=== PATIENT | female | born 1950 | race American Indian/Alaskan Native ===

== ENCOUNTER 2017-06-23 04:49 | Outpatient (CLI) | payer MEDICARE, BC ==
[~2017-06-23 04:49] MED LIST: AMOX-580 PO; ASPI81TA52 PO; ATOR20TA PO; BENA20TA2 PO; CALC-627 PO; INSU300I SQ; LEVO25TA50 PO; LINA5TAB4 PO; METF500T7 PO
== END 2017-06-23 23:59 | disposition home or self-care (01) ==
LOC: DIABETIC 04:49
PROVIDERS: ATTEND Family Medicine
DX: E11.65 Type 2 diabetes mellitus with hyperglycemia (principal); I10 Essential (primary) hypertension; Z90.710 Acquired absence of both cervix and uterus; Z98.890 Other specified postprocedural states
CPT/HCPCS: G0108

== ENCOUNTER 2017-12-20 05:12 | Day surgery (SDC) | payer MEDICARE, BC ==
[2017-12-14 16:38] LABS: BASOPHILS % (AUTO) 0.4 % (0-1); EOSINOPHILS # (AUTO) 0.2 X10'3 (0-0.9); LYMPHOCYTES # (AUTO) 2.5 X10'3 (1.1-4.8); LYMPHOCYTES % (AUTO) 29.8 % (21-51); MEAN CORPUSCULAR HGB CONC 34.2 % (33.0-36.5); MEAN CORPUSCULAR VOLUME 87.7 FL (78-98); MONOCYTES # (AUTO) 0.7 X10'3 (0-0.9); NEUTROPHILS % (AUTO) 59.8 % (42-75); PRE OP HEMATOCRIT 35.8 % (35.0-45.0); PRE OP HEMOGLOBIN 12.2 g/dL (12.0-16.0); PRE OP PLATELET COUNT 228 X10'3 (140-440); RED BLOOD COUNT 4.08 X10'6 (4.20-5.60); RED CELL DISTRIBUTION WIDTH 13.7 % (11.5-14.5)
[2017-12-14 16:45] LABS: HEMOGLOBIN A1C 6.1 % (4.5-6.2)
[2017-12-14 16:47] LABS: ALBUMIN 3.5 G/DL (3.4-5.0); ALKALINE PHOSPHATASE 67 IU/L (46-116); BLOOD UREA NITROGEN 20 MG/DL (7-18); BUN/CREATININE RATIO 18.7 (6.6-38.0); CALCIUM 8.8 MG/DL (8.5-10.1); CHLORIDE 105 MMOL/L (99-107); CREATININE 1.07 MG/DL (0.40-0.90); PRE OP ALT 26 U/L (30-65); PRE OP ANION GAP 6 (8-16); PRE OP AST 21 U/L (10-37); PRE OP BILIRUB, TOTAL 0.7 MG/DL (0.0-1.0); PRE OP GLUCOSE 115 MG/DL (70-104); PRE OP POTASSIUM 3.9 MMOL/L (3.4-5.1); PRE OP SODIUM 142 MMOL/L (135-145); TOTAL CARBON DIOXIDE 31.2 MMOL/L (24-32); eGFR 51 ML/MIN
[~2017-12-20] VITALS: Ht 157.5 cm; Wt 86.2 kg
[2017-12-20] VITALS (18 sets, daily range): BP systolic 120–142; BP diastolic 59–78
[~2017-12-20 05:12] MED LIST changes: -CALC-627 PO; +ringers solution, lacted 1,000 ML IV SCH
[2017-12-20] MEDS ORDERED: LIDOcaine 1% (10mg/ml) 2ml vial ONE (05:24)
[2017-12-20] MEDS ORDERED: Cefazolin 2GM/50ML dext iso,osmotic IVPB IV ONE (05:30)
[2017-12-20] MEDS ORDERED: vancomycin inj 1,500 MG in normal saline 300ml IV soln IV ONE (05:30)
[2017-12-20] MEDS ORDERED: famotidine 20mg tablet PO ONE (05:30)
[2017-12-20] MEDS ORDERED: PREG50CA PO (05:50)
[2017-12-20] MEDS ORDERED: BENA1TAB14 PO (05:50)
[2017-12-20] MEDS ORDERED: DOXY100C2 PO (05:52)
[2017-12-20] MEDS ORDERED: ASPI-1264 PO (05:52)
[2017-12-20] MEDS ORDERED: LIDOCAINE PATCH (05:55)
[2017-12-20] MEDS ORDERED: TOBR5DRO47 RIGHTEYE (05:55)
[2017-12-20] MEDS ORDERED: scopolamine 1.5mg patch.TD72 TD ONE (06:05)
[2017-12-20] MEDS ORDERED: cloNIDine hcl/PF 100mcg/ml inj ONE (06:12)
[2017-12-20] MEDS ORDERED: ROPIVAcaine 0.5% (5mg/ml) 30ml vial ONE ×2 (06:12→06:46)
[2017-12-20] MEDS ORDERED: acetaminophen 1,000mg/100ml IV 100 ML IV ONE (06:13)
[2017-12-20] MEDS ORDERED: fentaNYL/PF 50MCG/1 ML 2ML syringe ONE (06:16)
[2017-12-20] MEDS ORDERED: midazolam 2 mg/2 ml injection ONE (06:16)
[2017-12-20] MEDS ORDERED: ondansetron/PF 4mg/2ml inj ONE (06:20)
[2017-12-20] MEDS ORDERED: dexamethasone sod phosphate 4mg/ml inj. ONE (06:20)
[2017-12-20] MEDS ORDERED: ringers solution, lacted 1,000 ML IV SCH (06:21)
[2017-12-20] MEDS ORDERED: morphine 4 MG/ML inj SYRINge IV PRN ×2 (06:25)
[2017-12-20] MEDS ORDERED: proMETHazine 25mg rectal suppository RC PRN (06:25)
[2017-12-20] MEDS ORDERED: enalaprilat dihydrate 2.5mg/2ml vial IV PRN (06:25)
[2017-12-20] MEDS ORDERED: fentaNYL/PF 50MCG/1 ML 2ML syringe IV PRN ×2 (06:25)
[2017-12-20] MEDS ORDERED: hydrALAZINE 20mg/ml inj. IV PRN (06:25)
[2017-12-20] MEDS ORDERED: sevoflurane 250ml liquid IH ONE (06:44)
[2017-12-20] MEDS ORDERED: epiNEPHrine 1 mg/ml inj ONE (06:46)
== END 2017-12-20 11:11 | disposition home or self-care (01) ==
LOC: PAS 05:12
PROVIDERS: ATTEND Orthopaedic Surgery
DX: M75.102 Unspecified rotator cuff tear or rupture of left shoulder, not specified as traumatic (principal); G47.33 Obstructive sleep apnea (adult) (pediatric); E11.22 Type 2 diabetes mellitus with diabetic chronic kidney disease; I12.9 Hypertensive chronic kidney disease with stage 1 through stage 4 chronic kidney disease, or unspecified chronic kidney disease; N18.3 Chronic kidney disease, stage 3 (moderate); E78.5 Hyperlipidemia, unspecified; E89.0 Postprocedural hypothyroidism; G89.18 Other acute postprocedural pain; Z90.89 Acquired absence of other organs; Z86.73 Personal history of transient ischemic attack (TIA), and cerebral infarction without residual deficits; Z98.51 Tubal ligation status; Z90.710 Acquired absence of both cervix and uterus; Z72.89 Other problems related to lifestyle; Z85.53 Personal history of malignant neoplasm of renal pelvis; Z79.2 Long term (current) use of antibiotics; Z88.5 Allergy status to narcotic agent; Z88.2 Allergy status to sulfonamides; Z91.011 Allergy to milk products; Z79.82 Long term (current) use of aspirin; Z79.4 Long term (current) use of insulin; Z79.84 Long term (current) use of oral hypoglycemic drugs; Z98.890 Other specified postprocedural states; Z79.899 Other long term (current) drug therapy
CPT/HCPCS: 29822; 36415; 64450; 80053; 82948; 83036; 85025; 93005; A4565; A6257; J0131; J0171; J0690; J0735; J1100; J2250; J2405; J2795; J3010; J3370; J3490; J7030; J7120; A7000

== ENCOUNTER 2018-03-14 05:42 | Inpatient (IN) | payer BC, MEDICARE ==
[2018-03-08 16:21] LABS: BASOPHILS % (AUTO) 0.6 % (0-1); EOSINOPHILS # (AUTO) 0.1 X10'3 (0-0.9); EOSINOPHILS % (AUTO) 1.9 % (0-6); LYMPHOCYTES # (AUTO) 2.1 X10'3 (1.1-4.8); LYMPHOCYTES % (AUTO) 28.8 % (21-51); MEAN CORPUSCULAR HEMOGLOBIN 29.9 PG (27.0-31.0); MEAN CORPUSCULAR HGB CONC 33.5 % (33.0-36.5); MEAN CORPUSCULAR VOLUME 89.4 FL (78-98); MONOCYTES # (AUTO) 0.7 X10'3 (0-0.9); MONOCYTES % (AUTO) 9.3 % (2-12); NEUTROPHILS # (AUTO) 4.5 X10'3 (1.8-7.7); NEUTROPHILS % (AUTO) 59.4 % (42-75); PRE OP HEMATOCRIT 37.3 % (35.0-45.0); PRE OP HEMOGLOBIN 12.5 g/dL (12.0-16.0); PRE OP PLATELET COUNT 236 X10'3 (140-440); RED BLOOD COUNT 4.17 X10'6 (4.20-5.60); RED CELL DISTRIBUTION WIDTH 12.8 % (11.5-14.5)
[2018-03-08 16:41] LABS: ALBUMIN 3.5 G/DL (3.4-5.0); ALKALINE PHOSPHATASE 75 IU/L (46-116); BLOOD UREA NITROGEN 19 MG/DL (7-18); BUN/CREATININE RATIO 18.4 (6.6-38.0); CHLORIDE 104 MMOL/L (99-107); CREATININE 1.03 MG/DL (0.40-0.90); PRE OP ALT 29 U/L (30-65); PRE OP ANION GAP 9 (8-16); PRE OP AST 23 U/L (10-37); PRE OP BILIRUB, TOTAL 0.6 MG/DL (0.0-1.0); PRE OP GLUCOSE 129 MG/DL (70-104); PRE OP SODIUM 142 MMOL/L (135-145); TOTAL CARBON DIOXIDE 28.6 MMOL/L (24-32); TOTAL PROTEIN 6.9 G/DL (6.4-8.2); eGFR 53 ML/MIN
[~2018-03-14] VITALS: Ht 156.2 cm; Wt 88.5 kg
[2018-03-14] VITALS (30 sets, daily range): BP systolic 88–119; BP diastolic 36–67
[~2018-03-14 05:42] MED LIST changes: -AMOX-580 PO; +ASPI-1264 PO; -ASPI81TA52 PO; +BENA1TAB14 PO; -BENA20TA2 PO; +DOXY100C2 PO; +LIDO700A32 TP; +PREG50CA PO; +TOBR5DRO47 RIGHTEYE; +acetaminophen 325mg tablet PO ONE; +cefazolin/dext.iso 2gm/100 ML IV ONE; +famotidine 20mg tablet PO ONE; +gabapentin 300mg capsule PO ONE; +metoclopramide 5 mg/ml inj IV ONE; +oxyCODONE SR 10mg (sust. release) tab PO ONE; +scopolamine 1.5mg patch.TD72 TD ONE; +tranexamic acid inj. 1,000 MG in normal saline 100ml IV soln 90 ML IV ONE; +vancomycin inj 1,500 MG in normal saline 300ml IV soln IV ONE
[2018-03-14] MEDS ORDERED: LIDOcaine 1% (10mg/ml) 2ml vial ONE ×2 (06:07→06:15)
[2018-03-14] MEDS ORDERED: acetaminophen 1,000mg/100ml IV 100 ML IV ONE (06:49)
[2018-03-14] MEDS ORDERED: ROPIVAcaine 0.5% (5mg/ml) 30ml vial ONE (06:49)
[2018-03-14] MEDS ORDERED: cloNIDine hcl/PF 100mcg/ml inj ONE (06:49)
[2018-03-14] MEDS ORDERED: fentaNYL/PF 50MCG/1 ML 2ML syringe ONE (06:51)
[2018-03-14] MEDS ORDERED: midazolam 2 mg/2 ml injection ONE (06:51)
[2018-03-14] MEDS ORDERED: dexamethasone sod phosphate 4mg/ml inj. ONE (06:52)
[2018-03-14] MEDS ORDERED: LIDOcaine 2% (20mg/ml) 5ml vial ONE (06:53)
[2018-03-14] MEDS ORDERED: propofol inj 20 ML IV ONE (06:53)
[2018-03-14] MEDS ORDERED: vancomycin 1,000mg inj ONE (06:55)
[2018-03-14] MEDS ORDERED: ceFAZolin 1000mg inj ONE ×2 (06:55→09:25)
[2018-03-14] MEDS ORDERED: sevoflurane 250ml liquid IH ONE (07:10)
[2018-03-14] MEDS ORDERED: ePHEDrine 50MG/ML INJ. ONE (07:10)
[2018-03-14] MEDS ORDERED: Thrombin (Bovine) 5,000 unit vial TP ONE (07:42)
[2018-03-14] MEDS ORDERED: calcium chloride 100 MG/1 ML inj IV ONE (07:55)
[2018-03-14] MEDS ORDERED: ondansetron/PF 4mg/2ml inj ONE ×2 (08:20→09:11)
[2018-03-14] MEDS ORDERED: ringers solution, lacted 1,000 ML IV SCH (08:33)
[2018-03-14] MEDS ORDERED: fentaNYL/PF 50MCG/1 ML 2ML syringe IV PRN ×2 (08:35)
[2018-03-14] MEDS ORDERED: proMETHazine 25mg rectal suppository RC PRN (08:35)
[2018-03-14] MEDS ORDERED: morphine 4 MG/ML inj SYRINge IV PRN ×2 (08:35)
[2018-03-14] MEDS ORDERED: hydrALAZINE 20mg/ml inj. IV PRN (08:35)
[2018-03-14] MEDS ORDERED: ondansetron/PF 4mg/2ml inj IV PRN (08:35)
[2018-03-14] MEDS ORDERED: proCHLORperazine 10 MG/2 ml inj IV PRN (08:35)
[2018-03-14] MEDS ORDERED: labetalol 20mg/4ml (5mg/ml) syringe IV PRN (08:35)
[2018-03-14] MEDS ORDERED: LIDOcaine 5% patch TP PRN (11:50)
[2018-03-14] MEDS ORDERED: oxyCODONE IR 5mg (immed. release) tablet PO PRN (13:15)
[2018-03-14] MEDS ORDERED: diphenhydrAMINE 25mg capsule PO PRN ×2 (13:15)
[2018-03-14] MEDS ORDERED: acetaminophen 325mg tablet PO PRN (13:15)
[2018-03-14] MEDS ORDERED: bisacodyl 10mg suppository rectal RC PRN (13:15)
[2018-03-14] MEDS ORDERED: magnesium hydroxide 30ml (MOM) UD suspension PO PRN (13:15)
[2018-03-14] MEDS: acetaminophen 325mg tablet PO SCH ×3 (14:00→20:24)
[2018-03-14] MEDS: clindamycin 600mg/D5W 50ml 50 ML IV SCH ×2 (14:57→22:25)
[2018-03-14] MEDS ORDERED: tranexamic acid inj. 900 MG in normal saline 100ml IV soln 100 ML IV ONE (16:15)
[2018-03-14] MEDS: potassium cl 20mEq in 1/2 NS 1,000 ML IV SCH (17:57)
[2018-03-14] MEDS ORDERED: vancomycin/NS 1 GM ADD-VANTAGE 250 ML IV SCH (20:00)
[2018-03-14] MEDS: sennosides 8.6mg tablet PO SCH (20:24)
[2018-03-14] MEDS: gabapentin 300mg capsule PO SCH (20:24)
[2018-03-14] MEDS: pregabalin 25mg capsule PO SCH (20:24)
[2018-03-14] MEDS: metFORMIN 500mg tablet PO SCH (20:24)
[2018-03-14] MEDS ORDERED: clindamycin 600mg/D5W 50ml 50 ML IV SCH (22:30)
[2018-03-15 02:00] VITALS: BP 90/46
[2018-03-15] MEDS: acetaminophen 325mg tablet PO SCH ×4 (02:00→19:22)
[2018-03-15] MEDS: ondansetron/PF 4mg/2ml inj IV PRN ×3 (05:28→19:22)
[2018-03-15 06:00] VITALS: BP 111/44
[2018-03-15 06:27] LABS: HEMOGLOBIN A1C 6.8 % (4.5-6.2)
[2018-03-15] MEDS: potassium cl 20mEq in 1/2 NS 1,000 ML IV SCH ×3 (06:35→21:14)
[2018-03-15 06:49] LABS: ANION GAP 9 (8-16); CHLORIDE 105 MMOL/L (99-107); POTASSIUM 4.1 MMOL/L (3.5-5.1); SODIUM 140 MMOL/L (135-145)
[2018-03-15 07:11] LABS: BASOPHILS % (AUTO) 0.4 % (0-1); EOSINOPHILS % (AUTO) 0.4 % (0-6); HEMATOCRIT 31.2 % (35.0-45.0); HEMOGLOBIN 10.6 g/dl (12.0-16.0); LYMPHOCYTES # (AUTO) 1.6 X10'3 (1.1-4.8); LYMPHOCYTES % (AUTO) 20.4 % (21-51); MEAN CORPUSCULAR HEMOGLOBIN 30.2 PG (27.0-31.0); MEAN CORPUSCULAR HGB CONC 34.1 % (33.0-36.5); MEAN CORPUSCULAR VOLUME 88.6 FL (78-98); MEAN PLATELET VOLUME 9.1 FL (7.4-10.4); MONOCYTES # (AUTO) 0.7 X10'3 (0-0.9); MONOCYTES % (AUTO) 8.9 % (2-12); NEUTROPHILS # (AUTO) 5.6 X10'3 (1.8-7.7); NEUTROPHILS % (AUTO) 69.9 % (42-75); PLATELET COUNT 182 X10'3 (140-440); RED BLOOD COUNT 3.52 X10'6 (4.20-5.60); RED CELL DISTRIBUTION WIDTH 13.2 % (11.5-14.5); WHITE BLOOD COUNT 7.9 X10'3 (4.5-11.0)
[2018-03-15] MEDS: lisinopril 20mg tablet PO SCH (08:00)
[2018-03-15] MEDS: HYDROchlorothiazide 12.5mg capsule PO SCH (08:00)
[2018-03-15] MEDS: levoTHYROXINE 75mcg tablet PO SCH (08:33)
[2018-03-15] MEDS: atorvastatin 20mg tablet PO SCH (08:34)
[2018-03-15] MEDS: linagliptin 5mg tablet PO SCH (08:34)
[2018-03-15] MEDS: gabapentin 300mg capsule PO SCH ×3 (08:34→19:28)
[2018-03-15] MEDS: metFORMIN 500mg tablet PO SCH ×2 (08:34→19:21)
[2018-03-15] MEDS: pregabalin 25mg capsule PO SCH ×2 (08:34→19:22)
[2018-03-15] MEDS: DOXYCYCLINE 100MG CAPSULE PO SCH (08:35)
[2018-03-15] MEDS: enoxaparin 30mg/0.3ml syringe SQ SCH (08:35)
[2018-03-15] MEDS: HYDROmorphone 1 mg/ml syringe IV PRN ×4 (08:36→21:39)
[2018-03-15] MEDS: insulin glargine (Lantus) pen - multi-dose SQ SCH (08:54)
[2018-03-15 10:00] VITALS: BP 97/35
[2018-03-15 14:00] VITALS: BP 112/50
[2018-03-15 18:00] VITALS: BP 109/63
[2018-03-15] MEDS: sennosides 8.6mg tablet PO SCH (19:28)
[2018-03-15 22:00] VITALS: BP 116/49
[2018-03-16] MEDS: acetaminophen 325mg tablet PO SCH ×2 (02:00→08:14)
[2018-03-16] MEDS: ondansetron/PF 4mg/2ml inj IV PRN ×2 (03:08→10:46)
[2018-03-16] MEDS: HYDROmorphone 1 mg/ml syringe IV PRN ×3 (03:48→15:13)
[2018-03-16 05:00] VITALS: BP 117/45
[2018-03-16] MEDS: potassium cl 20mEq in 1/2 NS 1,000 ML IV SCH (05:14)
[2018-03-16 05:51] LABS: BASOPHILS % (AUTO) 0.4 % (0-1); EOSINOPHILS # (AUTO) 0.1 X10'3 (0-0.9); HEMATOCRIT 26.7 % (35.0-45.0); HEMOGLOBIN 9.5 g/dl (12.0-16.0); LYMPHOCYTES # (AUTO) 1.2 X10'3 (1.1-4.8); LYMPHOCYTES % (AUTO) 14.9 % (21-51); MEAN CORPUSCULAR HEMOGLOBIN 31.5 PG (27.0-31.0); MEAN CORPUSCULAR HGB CONC 35.5 % (33.0-36.5); MEAN CORPUSCULAR VOLUME 88.7 FL (78-98); MONOCYTES % (AUTO) 12.2 % (2-12); NEUTROPHILS # (AUTO) 5.9 X10'3 (1.8-7.7); NEUTROPHILS % (AUTO) 71.5 % (42-75); PLATELET COUNT 161 X10'3 (140-440); RED BLOOD COUNT 3.01 X10'6 (4.20-5.60); RED CELL DISTRIBUTION WIDTH 12.7 % (11.5-14.5); WHITE BLOOD COUNT 8.2 X10'3 (4.5-11.0)
[2018-03-16] MEDS: HYDROchlorothiazide 12.5mg capsule PO SCH (08:00)
[2018-03-16] MEDS: lisinopril 20mg tablet PO SCH (08:00)
[2018-03-16] MEDS: insulin glargine (Lantus) pen - multi-dose SQ SCH (08:10)
[2018-03-16] MEDS: atorvastatin 20mg tablet PO SCH (08:12)
[2018-03-16] MEDS: gabapentin 300mg capsule PO SCH ×2 (08:12→13:50)
[2018-03-16] MEDS: DOXYCYCLINE 100MG CAPSULE PO SCH (08:12)
[2018-03-16] MEDS: linagliptin 5mg tablet PO SCH (08:13)
[2018-03-16] MEDS: pregabalin 25mg capsule PO SCH (08:14)
[2018-03-16] MEDS: metFORMIN 500mg tablet PO SCH (08:15)
[2018-03-16] MEDS: levoTHYROXINE 75mcg tablet PO SCH (08:15)
[2018-03-16] MEDS: enoxaparin 30mg/0.3ml syringe SQ SCH (08:17)
[2018-03-16] MEDS ORDERED: iohexol 300 MG/1 ML 50ml polymer ONE (08:50)
[2018-03-16 10:00] VITALS: BP 104/54
[2018-03-16] MEDS ORDERED: acetaminophen 325mg tablet PO PRN (13:15)
== END 2018-03-16 15:44 | disposition home or self-care (01) | DRG 483 ==
LOC: PAS IN 05:42 → EDSTATUS 08:30 → ORTHO 4S 13:55
PROVIDERS: ADMIT Orthopaedic Surgery; ATTEND Orthopaedic Surgery
PROC: 3E0T3BZ Introduction of Anesthetic Agent into Peripheral Nerves and Plexi, Percutaneous Approach (ICD-10-PCS; 2018-03-14)
PROC: 0RRK00Z Replacement of Left Shoulder Joint with Reverse Ball and Socket Synthetic Substitute, Open Approach (ICD-10-PCS; principal; 2018-03-14 07:15)
DX: M19.012 Primary osteoarthritis, left shoulder (principal); D62 Acute posthemorrhagic anemia; E11.9 Type 2 diabetes mellitus without complications; I25.10 Atherosclerotic heart disease of native coronary artery without angina pectoris; E78.5 Hyperlipidemia, unspecified; G47.30 Sleep apnea, unspecified; E66.9 Obesity, unspecified; E89.0 Postprocedural hypothyroidism; I10 Essential (primary) hypertension; M75.102 Unspecified rotator cuff tear or rupture of left shoulder, not specified as traumatic; Z85.528 Personal history of other malignant neoplasm of kidney; Z68.36 Body mass index [BMI] 36.0-36.9, adult; Z88.5 Allergy status to narcotic agent; Z88.2 Allergy status to sulfonamides; Z91.018 Allergy to other foods; Z79.899 Other long term (current) drug therapy; Z79.82 Long term (current) use of aspirin; Z79.4 Long term (current) use of insulin
CPT/HCPCS: 36415; 73020; 80051; 80053; 82948; 83036; 84443; 85025; 87070; 97110; 97116; 97161; 97530; A4565; A7000; C1713; J0131; J0690; J0735; J1100; J1170; J1650; J1815; J2001; J2250; J2405; J2704; J2765; J2795; J3010; J3370; J3490; J7030; J7120; Q9967

== ENCOUNTER 2019-06-15 12:10 | Inpatient (IN) | payer BC, MEDICARE ==
[~2019-06-15] VITALS: Ht 157.5 cm; Wt 80.2 kg
[~2019-06-15 12:10] MED LIST changes: +METF500T20 PO; -METF500T7 PO; -TOBR5DRO47 RIGHTEYE; -acetaminophen 325mg tablet PO ONE; -cefazolin/dext.iso 2gm/100 ML IV ONE; -famotidine 20mg tablet PO ONE; -gabapentin 300mg capsule PO ONE; -metoclopramide 5 mg/ml inj IV ONE; -oxyCODONE SR 10mg (sust. release) tab PO ONE; -ringers solution, lacted 1,000 ML IV SCH; -scopolamine 1.5mg patch.TD72 TD ONE; -tranexamic acid inj. 1,000 MG in normal saline 100ml IV soln 90 ML IV ONE; -vancomycin inj 1,500 MG in normal saline 300ml IV soln IV ONE
[2019-06-15] MEDS ORDERED: LIPA1CAP8 (12:41)
[2019-06-15 13:12] LABS: BASOPHILS % (AUTO) 0.6 % (0-1); EOSINOPHILS # (AUTO) 0.2 X10'3 (0-0.9); EOSINOPHILS % (AUTO) 2.2 % (0-6); HEMATOCRIT 29.2 % (35.0-45.0); HEMOGLOBIN 9.6 g/dl (12.0-16.0); LYMPHOCYTES # (AUTO) 1.4 X10'3 (1.1-4.8); LYMPHOCYTES % (AUTO) 18.3 % (21-51); MEAN CORPUSCULAR HEMOGLOBIN 28.6 PG (27.0-31.0); MEAN CORPUSCULAR VOLUME 86.5 FL (78-98); MEAN PLATELET VOLUME 7.9 FL (7.4-10.4); MONOCYTES # (AUTO) 0.7 X10'3 (0-0.9); MONOCYTES % (AUTO) 9.5 % (2-12); NEUTROPHILS # (AUTO) 5.4 X10'3 (1.8-7.7); NEUTROPHILS % (AUTO) 69.4 % (42-75); PLATELET COUNT 299 X10'3 (140-440); RED BLOOD COUNT 3.37 X10'6 (4.20-5.60); RED CELL DISTRIBUTION WIDTH 17.3 % (11.5-14.5); WHITE BLOOD COUNT 7.8 X10'3 (4.5-11.0)
[2019-06-15 13:43] LABS: ALANINE AMINOTRANSFERASE 21 U/L (12-78); ALBUMIN 3.5 G/DL (3.4-5.0); ALBUMIN/GLOBULIN RATIO 0.8 (1.1-1.5); ALKALINE PHOSPHATASE 62 IU/L (46-116); ANION GAP 10 (8-16); ASPARTATE AMINO TRANSFERASE 16 U/L (10-37); BILIRUBIN,TOTAL 0.4 MG/DL (0.1-1.0); BLOOD UREA NITROGEN 65 MG/DL (7-18); BUN/CREATININE RATIO 27.3 (6.6-38.0); CALCIUM 8.7 MG/DL (8.5-10.1); CHLORIDE 107 MMOL/L (99-107); CREATININE 2.38 MG/DL (0.40-0.90); GLUCOSE 116 MG/DL (70-104); LIPASE 2060 U/L (73-393); SODIUM 136 MMOL/L (135-145); TOTAL PROTEIN 7.7 G/DL (6.4-8.2); eGFR 20 ML/MIN
[2019-06-15 13:45] LABS: POTASSIUM 6.4 MMOL/L (3.5-5.1)
--- NOTE | 2019-06-15 13:49 | NUR ---
Patient's potassium 6.4. Dr Desai aware.
[2019-06-15] MEDS ORDERED: furosemide 40mg/4ml inj IV ONE (14:05)
[2019-06-15] MEDS ORDERED: sodium bicarbonate (8.4%) 1 mEq/ml syringe IV ONE (14:05)
[2019-06-15] MEDS ORDERED: dextrose 50%-water 50ml dispensing syringe IV ONE (14:05)
[2019-06-15] MEDS ORDERED: insulin regular, human 10 units/0.1 ml syringe IV ONE (14:05)
[2019-06-15] MEDS ORDERED: calcium chloride 100 MG/1 ML inj IV ONE (14:05)
[2019-06-15] MEDS: diatr meglu/diatrizoate 30ml oral sol.-(3 dose) bottle PO SCH ×7 (14:06→21:06)
[2019-06-15 14:17] LABS: CLARITY,URINE CLEAR (Clear); COLOR,URINE YELLOW (Yellow); GLUCOSE, URINE NEGATIVE (Neg); KETONES,URINE NEGATIVE (Neg); LEUKOCYTE ESTERASE ,URINE TRACE (Neg); NITRITES, URINE NEGATIVE (Neg); OCCULT BLOOD,URINE NEGATIVE (Neg); PH,URINE 5.5 (4.8-8.0); PROTEIN,URINE NEGATIVE (Neg); UROBILINOGEN,URINE 0.2 E.U/dL (0.2-1.0)
[2019-06-15] MEDS ORDERED: sodium bicarbonate (8.4%) inj. 1 MEQ/ML ML IV ONE (14:20)
[2019-06-15 14:23] LABS: UA COLLECTION TYPE CLN CATCH MIDSTREAM
[2019-06-15 14:24] LABS: BACTERIA,URINE FEW /HPF (Neg); MUCUS STRANDS FEW /LPF (Neg); RBC,URINE 0-2 /HPF (0-2); SQUAMOUS EPITHELIAL CELL,UR MANY /LPF (FEW); WBC,URINE 0-4 /HPF (0-4)
[2019-06-15] MEDS: sodium bicarbonate (8.4%) inj. 75 MEQ in dextrose 5% water 500ml 500 ML IV SCH ×2 (15:46→20:50)
--- NOTE | 2019-06-15 16:51 | NUR ---
Pt's IV saline locked for CT scan. Pt transported to CT scan via w/c.
[2019-06-15 16:56] LABS: HEMOGLOBIN A1C 6.2 % (4.5-6.2)
[2019-06-15] MEDS ORDERED: dextrose ORAL solution 15 GM/59 ML bottle PO PRN ×2 (17:50)
[2019-06-15] MEDS ORDERED: insulin Lispro (HumaLOG) vial - multi-dose SQ SCH (17:50)
[2019-06-15] MEDS ORDERED: glucagon, human recombinant 1mg kit SUBCUT PRN (17:50)
[2019-06-15] MEDS ORDERED: dextrose 50%-water 50ml dispensing syringe IV PRN ×2 (17:50)
[2019-06-15] MEDS ORDERED: MESSAGE TO PHARMACY PO ONE (17:50)
--- NOTE | 2019-06-15 19:00 | NUR ---
Patient arrived to floor via gurney, transferred to hospital bed with minimum assistance. Patient alert/oriented x4, in no apparent distress. Vitals WNL, denies pain and nausea at this time, complains of constant need to "belch", but otherwise has no complaints. Abdominal incision present from prior surgery in may of 2019 with KALEN drain present, currently draining white drainage with mild odor. Incision CDI at this time, no other signs of infection noted to incision. Oriented patient to room and call light. Will continue to monitor patient closely.
[2019-06-15 20:00] VITALS: BP 128/41
[2019-06-15] MEDS ORDERED: LIPA1CAP8 PO (20:21)
--- NOTE | 2019-06-15 20:39 | NUR ---
Dr. Mulligan at bedside to assess patient. Son and daughter at bedside as well. All questions/concerns answered by . Addendum: 06/15/19 at 2051 by Lukas Wheatley RN Per Dr. Mulligan, patient to have regular diet instead of clear liquids. states to continue patient's lipase/amylase capsules if patient is eating without complications.
[2019-06-15 21:00] VITALS: BP 125/61
[2019-06-15] MEDS: insulin glargine (Lantus) pen - multi-dose SQ SCH (21:00)
[2019-06-15 22:00] VITALS: BP 124/53
[2019-06-16] VITALS (23 sets, daily range): BP systolic 88–129; BP diastolic 38–56
[2019-06-16] MEDS: sodium bicarbonate (8.4%) inj. 75 MEQ in dextrose 5% water 500ml 500 ML IV SCH ×3 (00:30→08:24)
[2019-06-16 05:26] LABS: BASOPHILS % (AUTO) 0.6 % (0-1); EOSINOPHILS # (AUTO) 0.2 X10'3 (0-0.9); EOSINOPHILS % (AUTO) 3.2 % (0-6); HEMATOCRIT 22.9 % (35.0-45.0); HEMOGLOBIN 7.9 g/dl (12.0-16.0); LYMPHOCYTES # (AUTO) 1.8 X10'3 (1.1-4.8); LYMPHOCYTES % (AUTO) 31.3 % (21-51); MEAN CORPUSCULAR HGB CONC 34.4 g/dL (33.0-36.5); MEAN CORPUSCULAR VOLUME 84.4 FL (78-98); MEAN PLATELET VOLUME 7.9 FL (7.4-10.4); MONOCYTES # (AUTO) 0.7 X10'3 (0-0.9); MONOCYTES % (AUTO) 11.5 % (2-12); NEUTROPHILS # (AUTO) 3.1 X10'3 (1.8-7.7); NEUTROPHILS % (AUTO) 53.4 % (42-75); PLATELET COUNT 226 X10'3 (140-440); RED BLOOD COUNT 2.71 X10'6 (4.20-5.60); WHITE BLOOD COUNT 5.9 X10'3 (4.5-11.0)
--- NOTE | 2019-06-16 06:23 | NUR ---
Problems reprioritized. Patient report given, questions answered & plan of care reviewed with Woody LEÓN.
[2019-06-16 07:55] LABS: ALBUMIN 2.8 G/DL (3.4-5.0); ANION GAP 7 (8-16); BLOOD UREA NITROGEN 54 MG/DL (7-18); BUN/CREATININE RATIO 34.4 (6.6-38.0); CALCIUM 8.7 MG/DL (8.5-10.1); CHLORIDE 109 MMOL/L (99-107); CREATININE 1.57 MG/DL (0.40-0.90); GLUCOSE 124 MG/DL (70-104); POTASSIUM 5.1 MMOL/L (3.5-5.1); SODIUM 144 MMOL/L (135-145); TOTAL CARBON DIOXIDE 28.1 MMOL/L (24-32); eGFR 32 ML/MIN
--- NOTE | 2019-06-16 10:54 | NUR ---
Malnutrition/DM Consults: Pt A1C <7 and not appropriate for DM ed at this time. Pt admit w/ N/V, hyperamylasemia, and hx prior hernia surgery one month ago per EMR. DX renal insufficiency secondary to dehydration, acute pancreatitis lipase 2059 on admit, and KALEN drain placed now milky output per MD note. 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 Pt placed on carb controlled diet PO 100% one item last night w/ further PO documentation pending. At this time pt has normal strength, no edema/wounds, no significant wt loss hx, BMI 32, and does not meet minimum malnutrition criteria. LBM 06/15. Will monitor for PO diet tolerance this admit. Rec: 1. advance diet to carb controlled/low fat per MD approval 2. monitor for PO diet tolerance and ONS needs 3. bowel care as needed 4. wt per rx Addendum: 06/16/19 at [address] Amended: Links added.
[2019-06-16] MEDS: linagliptin 5mg tablet PO SCH (11:10)
[2019-06-16] MEDS: levoTHYROXINE 75mcg tablet PO SCH (11:10)
[2019-06-16] MEDS: LIPASE/PROTEASE/AMYLASE 4,200 unit CAPSULE.DR PO SCH ×2 (12:44→17:51)
--- NOTE | 2019-06-16 17:39 | NUR ---
0830- Dr Mulligan rounds- May stay on unit if no pressing need for transfer, monitor for one more day. Possible for d/c home tomorrow. addressed some home meds. 0930- Dr Gil, addressed remainder of home med. DC IV HCO3.
--- NOTE | 2019-06-16 18:27 | NUR ---
Patient in room ICU 2043. I have received report from Woody LEÓN and had the opportunity to ask questions and assume patient care.
--- NOTE | 2019-06-16 18:30 | NUR ---
Nutrition consult re "pancreatitis, DM, lactose intolerant": Aready addressed in prior RD note; see below recs. Malnutrition/DM Consults: Pt A1C <7 and not appropriate for DM ed at this time. Pt admit w/ N/V, hyperamylasemia, and hx prior hernia surgery one month ago per EMR. DX renal insufficiency secondary to dehydration, acute pancreatitis lipase 2059 on admit, and KALEN drain placed now milky output per MD note. 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 Pt placed on carb controlled diet PO 100% one item last night w/ further PO documentation pending. At this time pt has normal strength, no edema/wounds, no significant wt loss hx, BMI 32, and does not meet minimum malnutrition criteria. LBM 06/15. Will monitor for PO diet tolerance this admit. Rec: 1. advance diet to carb controlled/low fat per MD approval 2. monitor for PO diet tolerance and ONS needs 3. bowel care as needed 4. wt per rx Addendum: 06/16/19 at [address] Amended: Links added.
[2019-06-16] MEDS: pregabalin 25mg capsule PO SCH (19:22)
[2019-06-16] MEDS ORDERED: simethicone 80mg chew tab PO ONE (20:30)
[2019-06-16] MEDS: insulin glargine (Lantus) pen - multi-dose SQ SCH (21:00)
[2019-06-17] VITALS (17 sets, daily range): BP systolic 101–124; BP diastolic 47–74
[2019-06-17 05:39] LABS: BASOPHILS % (AUTO) 0.7 % (0-1); EOSINOPHILS # (AUTO) 0.2 X10'3 (0-0.9); HEMATOCRIT 23.3 % (35.0-45.0); LYMPHOCYTES # (AUTO) 1.4 X10'3 (1.1-4.8); LYMPHOCYTES % (AUTO) 31.1 % (21-51); MEAN CORPUSCULAR HEMOGLOBIN 28.8 PG (27.0-31.0); MEAN CORPUSCULAR HGB CONC 34.2 g/dL (33.0-36.5); MEAN CORPUSCULAR VOLUME 84.4 FL (78-98); MEAN PLATELET VOLUME 7.8 FL (7.4-10.4); MONOCYTES # (AUTO) 0.6 X10'3 (0-0.9); MONOCYTES % (AUTO) 12.2 % (2-12); NEUTROPHILS # (AUTO) 2.4 X10'3 (1.8-7.7); PLATELET COUNT 199 X10'3 (140-440); RED BLOOD COUNT 2.76 X10'6 (4.20-5.60); RED CELL DISTRIBUTION WIDTH 17.6 % (11.5-14.5); WHITE BLOOD COUNT 4.6 X10'3 (4.5-11.0)
[2019-06-17 05:50] LABS: ALBUMIN 2.8 G/DL (3.4-5.0); ANION GAP 8 (8-16); BLOOD UREA NITROGEN 32 MG/DL (7-18); BUN/CREATININE RATIO 28.3 (6.6-38.0); CALCIUM 8.2 MG/DL (8.5-10.1); CHLORIDE 106 MMOL/L (99-107); CREATININE 1.13 MG/DL (0.40-0.90); GLUCOSE 111 MG/DL (70-104); POTASSIUM 4.4 MMOL/L (3.5-5.1); SODIUM 143 MMOL/L (135-145); TOTAL CARBON DIOXIDE 29.4 MMOL/L (24-32); eGFR 47 ML/MIN
[2019-06-17 05:51] LABS: LIPASE 2064 U/L (73-393)
--- NOTE | 2019-06-17 06:15 | NUR ---
Patient in room ICU 2043. I have received report from MAU BOWER and had the opportunity to ask questions and assume patient care.
--- NOTE | 2019-06-17 06:40 | NUR ---
Problems reprioritized. Patient report given, questions answered & plan of care reviewed with Britton RN.
--- NOTE | 2019-06-17 07:45 | NUR ---
Patient in room ICU 2043. I have received report from jesus aguilar and had the opportunity to ask questions and assume patient care.
[2019-06-17] MEDS: pregabalin 25mg capsule PO SCH (08:17)
[2019-06-17] MEDS: levoTHYROXINE 75mcg tablet PO SCH (08:17)
[2019-06-17] MEDS: linagliptin 5mg tablet PO SCH (08:17)
[2019-06-17] MEDS: LIPASE/PROTEASE/AMYLASE 4,200 unit CAPSULE.DR PO SCH ×2 (08:17→13:22)
[2019-06-17] MEDS ORDERED: potassium Cl 20 mEq SR tablet PO ONE (15:10)
[2019-06-17] MEDS ORDERED: amiodarone 200mg tablet PO SCH (20:00)
[2019-06-18] MEDS ORDERED: apixaban 5mg tablet PO SCH (20:00)
== END 2019-06-17 17:55 | disposition home or self-care (01) | DRG 682 ==
LOC: ER 12:11 → ED HOLD 17:40 → ICU 2S 19:15
PROVIDERS: ADMIT Internal Medicine Critical Care Medicine; ATTEND Surgery
DX: N17.9 Acute kidney failure, unspecified (principal); K85.90 Acute pancreatitis without necrosis or infection, unspecified; E87.2 Acidosis; D64.9 Anemia, unspecified; E03.9 Hypothyroidism, unspecified; E11.40 Type 2 diabetes mellitus with diabetic neuropathy, unspecified; E86.0 Dehydration; E87.5 Hyperkalemia; I10 Essential (primary) hypertension; G89.29 Other chronic pain; K57.90 Diverticulosis of intestine, part unspecified, without perforation or abscess without bleeding; K29.00 Acute gastritis without bleeding; K43.2 Incisional hernia without obstruction or gangrene; K52.9 Noninfective gastroenteritis and colitis, unspecified; K86.89 Other specified diseases of pancreas; Z79.4 Long term (current) use of insulin; Z79.890 Hormone replacement therapy; Z88.2 Allergy status to sulfonamides; Z88.5 Allergy status to narcotic agent; Z79.899 Other long term (current) drug therapy
CPT/HCPCS: 36415; 74176; 80048; 80053; 81001; 82948; 83036; 83605; 83690; 84132; 84145; 84443; 85025; 85610; 87081; 93005; 96374; 96375; 99285; G0378; J1815; J1940; Q9963

== ENCOUNTER 2019-08-06 22:15 | Inpatient (IN) | payer BC, MEDICARE ==
[~2019-08-06] VITALS: Ht 157.5 cm; Wt 79.0 kg
[~2019-08-06 22:15] MED LIST changes: -ASPI-1264 PO; -ATOR20TA PO; +LIPA1CAP8 PO
[2019-08-06] MEDS ORDERED: ondansetron/PF 4mg/2ml inj IV ONE (22:40)
[2019-08-06] MEDS ORDERED: normal saline 1000ML IV soln IVB ONE (22:40)
[2019-08-06 22:49] LABS: BASOPHILS % (AUTO) 0.6 % (0-1); EOSINOPHILS # (AUTO) 0.1 X10'3 (0-0.9); EOSINOPHILS % (AUTO) 0.9 % (0-6); HEMATOCRIT 29.1 % (35.0-45.0); HEMOGLOBIN 9.7 g/dl (12.0-16.0); LYMPHOCYTES # (AUTO) 1.4 X10'3 (1.1-4.8); LYMPHOCYTES % (AUTO) 16.8 % (21-51); MEAN CORPUSCULAR HEMOGLOBIN 27.7 PG (27.0-31.0); MEAN CORPUSCULAR HGB CONC 33.4 g/dL (33.0-36.5); MEAN PLATELET VOLUME 8.6 FL (7.4-10.4); MONOCYTES # (AUTO) 0.5 X10'3 (0-0.9); MONOCYTES % (AUTO) 6.5 % (2-12); NEUTROPHILS # (AUTO) 6.2 X10'3 (1.8-7.7); NEUTROPHILS % (AUTO) 75.2 % (42-75); PLATELET COUNT 243 X10'3 (140-440); RED BLOOD COUNT 3.51 X10'6 (4.20-5.60); RED CELL DISTRIBUTION WIDTH 16.8 % (11.5-14.5); WHITE BLOOD COUNT 8.2 X10'3 (4.5-11.0)
[2019-08-06] MEDS: diatr meglu/diatrizoate 30ml oral sol.-(3 dose) bottle PO SCH ×2 (22:56→23:41)
[2019-08-06 23:07] LABS: ALANINE AMINOTRANSFERASE 13 U/L (12-78); ALBUMIN 3.2 G/DL (3.4-5.0); ALBUMIN/GLOBULIN RATIO 0.8 (1.1-1.5); ALKALINE PHOSPHATASE 81 IU/L (46-116); AMYLASE 41 U/L (25-115); ANION GAP 10 (8-16); ASPARTATE AMINO TRANSFERASE 16 U/L (10-37); BILIRUBIN,TOTAL 0.6 MG/DL (0.1-1.0); BLOOD UREA NITROGEN 16 MG/DL (7-18); BUN/CREATININE RATIO 13.6 (6.6-38.0); CALCIUM 8.6 MG/DL (8.5-10.1); CHLORIDE 112 MMOL/L (99-107); CREATININE 1.18 MG/DL (0.40-0.90); GLUCOSE 141 MG/DL (70-104); LIPASE 421 U/L (73-393); POTASSIUM 3.8 MMOL/L (3.5-5.1); SODIUM 144 MMOL/L (135-145); TOTAL CARBON DIOXIDE 21.6 MMOL/L (24-32); TOTAL PROTEIN 7.2 G/DL (6.4-8.2); eGFR 45 ML/MIN
[2019-08-06 23:09] LABS: CLARITY,URINE CLEAR (Clear); COLOR,URINE YELLOW (Yellow); GLUCOSE, URINE NEGATIVE (Neg); KETONES,URINE TRACE mg/dl (Neg); LEUKOCYTE ESTERASE ,URINE NEGATIVE (Neg); NITRITES, URINE NEGATIVE (Neg); OCCULT BLOOD,URINE NEGATIVE (Neg); PH,URINE 5.5 (4.8-8.0); PROTEIN,URINE NEGATIVE (Neg); UROBILINOGEN,URINE 0.2 E.U/dL (0.2-1.0)
[2019-08-06 23:22] LABS: UA COLLECTION TYPE CLN CATCH MIDSTREAM
[2019-08-06] MEDS ORDERED: iohexol 300mg/ml 100ml inj. ONE (23:34)
--- NOTE | 2019-08-06 23:52 | NUR ---
PT UP OUT OF BED TO VOID AT BEDSIDE COMMODE
[2019-08-07] MEDS: diatr meglu/diatrizoate 30ml oral sol.-(3 dose) bottle PO SCH (00:07)
--- NOTE | 2019-08-07 00:10 | NUR ---
pt to ct
--- NOTE | 2019-08-07 00:29 | NUR ---
pt back from ct
[2019-08-07] MEDS ORDERED: ondansetron/PF 4mg/2ml inj IV ONE (01:35)
[2019-08-07] MEDS ORDERED: magnesium hydroxide 30ml (MOM) UD suspension PO PRN (02:35)
[2019-08-07] MEDS ORDERED: ondansetron/PF 4mg/2ml inj IV PRN (02:35)
[2019-08-07] MEDS ORDERED: mag hydrox/Alum hydrox/simeth 30ml oral suspension PO PRN (02:35)
[2019-08-07] MEDS ORDERED: magnesium 4gm in 100ml NS 100 ML IV PRN (02:35)
[2019-08-07] MEDS ORDERED: magnesium Cl slow-release 64mg tablet PO PRN (02:35)
[2019-08-07] MEDS ORDERED: acetaminophen 325mg tablet PO PRN (02:35)
[2019-08-07] MEDS ORDERED: potassium CL 10mEq/100ml bag 100 ML IV PRN ×2 (02:35)
[2019-08-07] MEDS ORDERED: potassium Cl 20 mEq SR tablet PO PRN ×2 (02:35)
[2019-08-07] MEDS ORDERED: magnesium 2GM in 50ml NS 50 ML IV PRN (02:35)
[2019-08-07] MEDS ORDERED: proCHLORperazine 10 MG/2 ml inj IV PRN (02:35)
[2019-08-07] MEDS: normal saline 1000ml 1,000 ML IV SCH ×2 (02:40→14:37)
[2019-08-07] MEDS ORDERED: ALLO100T PO (02:51)
[2019-08-07] MEDS ORDERED: ATOR20TA66 PO (02:51)
--- NOTE | 2019-08-07 03:09 | NUR ---
DARINED KALEN OF CLEAR MILKY WITH SOME SEDIMENT FLUID A TOTAL OF 50 ML
--- NOTE | 2019-08-07 03:49 | NUR ---
PT SLEEPING COMFORTABLY WITH HOB UP 45 DEGREES PT NO LONGER DRY HEIVING POST COMPAZINE IV
[2019-08-07] MEDS ORDERED: levoTHYROXINE 25mcg tablet PO SCH (08:00)
[2019-08-07] MEDS ORDERED: pregabalin 25mg capsule PO SCH (08:00)
[2019-08-07] MEDS ORDERED: lisinopril 20mg tablet PO SCH (08:00)
[2019-08-07] MEDS ORDERED: HYDROchlorothiazide 12.5mg capsule PO SCH (08:00)
[2019-08-07] MEDS ORDERED: atorvastatin 20mg tablet PO SCH (08:00)
[2019-08-07] MEDS ORDERED: K and/or MAG REPLACEMENT MC SCH (08:00)
[2019-08-07 09:45] VITALS: BP 133/61
[2019-08-07] MEDS: sucralfate 1 gm tablet PO SCH ×3 (09:50→16:33)
[2019-08-07 11:00] VITALS: BP 137/56
[2019-08-07] MEDS: pantoprazole 40MG/NS 100ML BAG 100 ML IV SCH ×2 (12:16→16:33)
--- NOTE | 2019-08-07 15:31 | NUR ---
PER DR ESCOBAR, OK FOR PT TO DC @ 1900 AFTER DOSE OF PROTONIX IN COMPLETE. WILL NOTIFY DR CHANDLER
[2019-08-07] MEDS ORDERED: SUCR1TAB34 PO (16:08)
[2019-08-07] MEDS ORDERED: PANT-47 PO (16:08)
[2019-08-07] MEDS ORDERED: ONDA8TAB6 PO (16:08)
--- NOTE | 2019-08-07 17:43 | NUR ---
AGREE WITH PHYSICAL ASSESSMENT DONE BY COMMERCIAL DRAFTER EXCEPT FOR CHANGES MADE Addendum: 08/07/19 at 1744 by Noy Guadarrama RN Amended: Links added.
--- NOTE | 2019-08-07 17:57 | NUR ---
Patient report given, questions answered & plan of care reviewed with MAU Casper.
--- NOTE | 2019-08-07 18:30 | NUR ---
Problems reprioritized. Patient report given, questions answered & plan of care reviewed with MAXIMO LEÓN.
== END 2019-08-07 20:13 | disposition home or self-care (01) | DRG 439 ==
LOC: ER 22:16 → ED HOLD 08-07 02:31 → EDBEDREQTM 08-07 02:39 → EDBEDREQ 08-07 04:40 → SUR 3N 08-07 09:22 → UNDODISIN 08-07 19:36
PROVIDERS: ADMIT Family Medicine; ATTEND Family Medicine
DX: K86.89 Other specified diseases of pancreas (principal); T81.10XA Postprocedural shock unspecified, initial encounter; E03.9 Hypothyroidism, unspecified; E78.5 Hyperlipidemia, unspecified; E11.9 Type 2 diabetes mellitus without complications; I10 Essential (primary) hypertension; D64.9 Anemia, unspecified; I25.10 Atherosclerotic heart disease of native coronary artery without angina pectoris; Y83.8 Other surgical procedures as the cause of abnormal reaction of the patient, or of later complication, without mention of misadventure at the time of the procedure; Z86.73 Personal history of transient ischemic attack (TIA), and cerebral infarction without residual deficits; Z88.2 Allergy status to sulfonamides; Z88.8 Allergy status to other drugs, medicaments and biological substances; Z79.899 Other long term (current) drug therapy; Y92.89 Other specified places as the place of occurrence of the external cause
CPT/HCPCS: 36415; 74177; 80053; 81003; 82150; 82948; 83690; 85025; 87081; 96374; 96376; 99285; C9113; G0378; J0780; J2405; J7030; Q9963; Q9967

== ENCOUNTER 2020-05-03 18:02 | Inpatient (IN) | payer BC, MEDICARE ==
[~2020-05-03] VITALS: Ht 157.5 cm; Wt 72.7 kg
[~2020-05-03 18:02] MED LIST changes: +ALLO100T PO; +ATOR20TA66 PO; -LEVO25TA50 PO; -METF500T20 PO; +ONDA8TAB6 PO; +PANT-47 PO; +SUCR1TAB34 PO
[2020-05-03] MEDS ORDERED: ondansetron/PF 4mg/2ml inj IV ONE (18:40)
[2020-05-03] MEDS ORDERED: morphine 4 MG/ML inj SYRINge IV ONE (18:50)
[2020-05-03] MEDS ORDERED: LORazepam 2 mg/ml vial IV ONE (18:50)
[2020-05-03] MEDS ORDERED: pantoprazole 40 MG vial IV ONE (18:50)
[2020-05-03] MEDS ORDERED: morphine 2 MG/ML inj. syringe IV PRN (18:50)
[2020-05-03] MEDS ORDERED: normal saline 1000ML IV soln IVB ONE (18:50)
[2020-05-03 18:59] LABS: BASOPHILS # (AUTO) 0.1 X10'3 (0-0.2); BASOPHILS % (AUTO) 0.9 % (0-1); EOSINOPHILS # (AUTO) 0.2 X10'3 (0-0.9); EOSINOPHILS % (AUTO) 1.7 % (0-6); HEMATOCRIT 35.5 % (35.0-45.0); HEMOGLOBIN 11.3 g/dl (12.0-16.0); LYMPHOCYTES # (AUTO) 2.3 X10'3 (1.1-4.8); LYMPHOCYTES % (AUTO) 17.4 % (21-51); MEAN CORPUSCULAR HEMOGLOBIN 28.2 PG (27.0-31.0); MEAN CORPUSCULAR HGB CONC 31.7 g/dL (33.0-36.5); MEAN CORPUSCULAR VOLUME 88.7 FL (78-98); MEAN PLATELET VOLUME 9.2 FL (7.4-10.4); MONOCYTES # (AUTO) 1.1 X10'3 (0-0.9); MONOCYTES % (AUTO) 8.6 % (2-12); NEUTROPHILS # (AUTO) 9.5 X10'3 (1.8-7.7); NEUTROPHILS % (AUTO) 71.4 % (42-75); PLATELET COUNT 433 X10'3 (140-440); RED CELL DISTRIBUTION WIDTH 15.8 % (11.5-14.5); WHITE BLOOD COUNT 13.3 X10'3 (4.5-11.0)
[2020-05-03 19:03] LABS: ALANINE AMINOTRANSFERASE 23 U/L (12-78); ALBUMIN 3.8 G/DL (3.4-5.0); ALKALINE PHOSPHATASE 76 IU/L (46-116); ANION GAP 11 (8-16); ASPARTATE AMINO TRANSFERASE 23 U/L (10-37); BILIRUBIN,TOTAL 0.7 MG/DL (0.1-1.0); BLOOD UREA NITROGEN 21 MG/DL (7-18); BUN/CREATININE RATIO 18.6 (6.6-38.0); CALCIUM 9.4 MG/DL (8.5-10.1); CHLORIDE 103 MMOL/L (99-107); CREATININE 1.13 MG/DL (0.40-0.90); GLUCOSE 188 MG/DL (70-104); POTASSIUM 4.3 MMOL/L (3.5-5.1); SODIUM 139 MMOL/L (135-145); TOTAL PROTEIN 7.6 G/DL (6.4-8.2); eGFR 47 ML/MIN
--- NOTE | 2020-05-03 19:09 | NUR ---
MEDICAL RECORDS REQUESTED FROM [facility] [place] [facility], LEFT MESSAGE WITH NURSING CROSSTIE INSPECTOR.
[2020-05-03 19:10] LABS: LIPASE 75 U/L (73-393)
--- NOTE | 2020-05-03 19:28 | NUR ---
[place]ICAL RECORDS [place] [facility] [place]
[2020-05-03] MEDS ORDERED: LINA5TAB4 PO (21:48)
[2020-05-03] MEDS ORDERED: HYDR12.55 PO (21:48)
[2020-05-03] MEDS ORDERED: ALEN70TA60 PO (21:48)
[2020-05-03] MEDS ORDERED: SENN-263 PO (21:48)
[2020-05-03] MEDS ORDERED: METF-436 PO (21:48)
[2020-05-03] MEDS ORDERED: LEVO50TA66 PO (21:48)
[2020-05-03] MEDS ORDERED: BENA20TA82 PO (21:48)
[2020-05-03] MEDS ORDERED: PANT-47 PO (21:48)
[2020-05-03] MEDS ORDERED: INSU300I (21:48)
[2020-05-03] MEDS ORDERED: acetaminophen 325mg tablet PO PRN ×2 (22:05)
[2020-05-03] MEDS ORDERED: dextrose ORAL solution 15 GM/59 ML bottle PO PRN ×2 (22:05)
[2020-05-03] MEDS ORDERED: magnesium 2GM in 50ml NS 50 ML IV PRN (22:05)
[2020-05-03] MEDS ORDERED: ondansetron/PF 4mg/2ml inj IV PRN (22:05)
[2020-05-03] MEDS ORDERED: HYDROcodone/acetaminophen 10/325mg tab PO PRN (22:05)
[2020-05-03] MEDS ORDERED: insulin Lispro (HumaLOG) vial - multi-dose SQ SCH (22:05)
[2020-05-03] MEDS ORDERED: potassium Cl 20 mEq SR tablet PO PRN ×2 (22:05)
[2020-05-03] MEDS ORDERED: magnesium 4gm in 100ml NS 100 ML IV PRN (22:05)
[2020-05-03] MEDS ORDERED: HYDROcodone/acetaminophen 5mg/325mg tablet PO PRN (22:05)
[2020-05-03] MEDS ORDERED: potassium CL 10mEq/100ml bag 100 ML IV PRN ×2 (22:05)
[2020-05-03] MEDS ORDERED: glucagon, human recombinant 1mg kit SUBCUT PRN (22:05)
[2020-05-03] MEDS ORDERED: MESSAGE TO PHARMACY PO ONE (22:05)
[2020-05-03] MEDS ORDERED: dextrose 50%-water 50ml dispensing syringe IV PRN ×2 (22:05)
--- NOTE | 2020-05-03 22:59 | NUR ---
DISCUSSED CARE WITH MD TABARES REGARDING LOVENOX ORDER. IS NOT PLANNING FOR SURGERY AT THIS TIME AND PLANS FOR A REPEAT CT IN THE AM.
[2020-05-03] MEDS: normal saline 1000ml 1,000 ML IV SCH (23:04)
[2020-05-03] MEDS: enoxaparin 40mg/0.4ml syringe SQ SCH (23:05)
[2020-05-03] MEDS: diatr meglu/diatrizoate 30ml oral sol.-(3 dose) bottle PO SCH (23:35)
--- NOTE | 2020-05-03 23:44 | NUR ---
I have received report from Sujatha, ED RN and had the opportunity to ask questions and assume patient care.
[2020-05-04] MEDS: HYDROmorphone inj. 0.5 MG/0.5 ML DISP.SYRIN IV PRN ×2 (00:41→04:26)
[2020-05-04 00:45] VITALS: BP 137/60
[2020-05-04 05:50] LABS: BASOPHILS # (AUTO) 0.1 X10'3 (0-0.2); BASOPHILS % (AUTO) 0.7 % (0-1); EOSINOPHILS # (AUTO) 0.1 X10'3 (0-0.9); EOSINOPHILS % (AUTO) 0.4 % (0-6); HEMATOCRIT 32.8 % (35.0-45.0); HEMOGLOBIN 10.7 g/dl (12.0-16.0); LYMPHOCYTES % (AUTO) 14.3 % (21-51); MEAN CORPUSCULAR HEMOGLOBIN 28.8 PG (27.0-31.0); MEAN CORPUSCULAR HGB CONC 32.4 g/dL (33.0-36.5); MEAN CORPUSCULAR VOLUME 88.9 FL (78-98); MEAN PLATELET VOLUME 9.7 FL (7.4-10.4); MONOCYTES % (AUTO) 6.9 % (2-12); NEUTROPHILS % (AUTO) 77.7 % (42-75); PLATELET COUNT 445 X10'3 (140-440); RED CELL DISTRIBUTION WIDTH 15.8 % (11.5-14.5); WHITE BLOOD COUNT 14.1 X10'3 (4.5-11.0)
[2020-05-04 06:00] LABS: ALANINE AMINOTRANSFERASE 19 U/L (12-78); ALBUMIN 3.1 G/DL (3.4-5.0); ALBUMIN/GLOBULIN RATIO 0.9 (1.1-1.5); ALKALINE PHOSPHATASE 52 IU/L (46-116); ANION GAP 7 (8-16); ASPARTATE AMINO TRANSFERASE 19 U/L (10-37); BILIRUBIN,TOTAL 0.7 MG/DL (0.1-1.0); BLOOD UREA NITROGEN 16 MG/DL (7-18); BUN/CREATININE RATIO 16.3 (6.6-38.0); CALCIUM 8.1 MG/DL (8.5-10.1); CHLORIDE 107 MMOL/L (99-107); CREATININE 0.98 MG/DL (0.40-0.90); GLUCOSE 137 MG/DL (70-104); MAGNESIUM 1.1 MG/DL (1.5-2.4); POTASSIUM 4.7 MMOL/L (3.5-5.1); SODIUM 142 MMOL/L (135-145); TOTAL CARBON DIOXIDE 27.6 MMOL/L (24-32); TOTAL PROTEIN 6.6 G/DL (6.4-8.2); eGFR 56 ML/MIN
--- NOTE | 2020-05-04 06:46 | NUR ---
Problems reprioritized. Patient report given, questions answered & plan of care reviewed with MAU Mercado.
[2020-05-04 07:35] VITALS: BP 116/50
[2020-05-04] MEDS: diatr meglu/diatrizoate 30ml oral sol.-(3 dose) bottle PO SCH ×2 (07:51→21:00)
[2020-05-04] MEDS: K and/or MAG REPLACEMENT MC SCH ×2 (07:53→20:00)
[2020-05-04] MEDS: normal saline 1000ml 1,000 ML IV SCH ×2 (07:57→16:58)
[2020-05-04 08:50] LABS: TOTAL CELLS COUNTED 100
[2020-05-04 08:51] LABS: LARGE PLATELETS FEW; PLATELET ESTIMATE INCREASED; TOXIC GRANULATION 1+
[2020-05-04 09:04] LABS: ACANTHOCYTES 1+
[2020-05-04 09:05] LABS: ANISOCYTOSIS FEW; POIKILOCYTOSIS 1+
[2020-05-04 09:06] LABS: HYPOCHROMASIA 1+
[2020-05-04 12:10] VITALS: BP 115/50
--- NOTE | 2020-05-04 16:30 | NUR ---
DM consult, A1c 7.8%; H/o resected pancreas and abdominal sx. Met pt at bedside and given written DM education handout with verbal review. Pt reports her A1c is usually 6.7% and prior to her surgeries in May 2019 was only taking two DM medications and now is taking 4 different DM meds, she virtually sees an store team member team in [place]. Increase in DM medication may be associated with pancreas resection. Provided with RD contact information if any further questions. Pt states she is lactose intolerant however can tolerate yogurt. Drinks soy and almond milk as alternatives. Addendum: 05/04/20 at [address] Amended: Links added.
--- NOTE | 2020-05-04 18:00 | NUR ---
Patient in room [facility] 340. I have received report from Dolly LEÓN and had the opportunity to ask questions and assume patient care.
--- NOTE | 2020-05-04 18:34 | NUR ---
Problems reprioritized. Patient report given, questions answered & plan of care reviewed with MAU Flores.
[2020-05-04 20:00] VITALS: BP 106/49
[2020-05-04] MEDS: enoxaparin 40mg/0.4ml syringe SQ SCH (20:36)
[2020-05-04] MEDS: pregabalin 25mg capsule PO SCH (20:36)
[2020-05-04] MEDS ORDERED: insulin glargine (Lantus) pen - multi-dose SQ SCH (21:00)
[2020-05-05] VITALS: BP 116/52
[2020-05-05] MEDS: normal saline 1000ml 1,000 ML IV SCH (04:36)
[2020-05-05 05:00] LABS: BASOPHILS # (AUTO) 0.1 X10'3 (0-0.2); BASOPHILS % (AUTO) 0.9 % (0-1); EOSINOPHILS # (AUTO) 0.3 X10'3 (0-0.9); EOSINOPHILS % (AUTO) 3.5 % (0-6); HEMATOCRIT 29.5 % (35.0-45.0); HEMOGLOBIN 9.7 g/dl (12.0-16.0); LYMPHOCYTES % (AUTO) 33.1 % (21-51); MEAN CORPUSCULAR HGB CONC 32.8 g/dL (33.0-36.5); MEAN CORPUSCULAR VOLUME 88.5 FL (78-98); MEAN PLATELET VOLUME 9.7 FL (7.4-10.4); MONOCYTES # (AUTO) 1.1 X10'3 (0-0.9); MONOCYTES % (AUTO) 11.8 % (2-12); NEUTROPHILS # (AUTO) 4.7 X10'3 (1.8-7.7); NEUTROPHILS % (AUTO) 50.7 % (42-75); PLATELET COUNT 378 X10'3 (140-440); RED BLOOD COUNT 3.34 X10'6 (4.20-5.60); RED CELL DISTRIBUTION WIDTH 15.4 % (11.5-14.5); WHITE BLOOD COUNT 9.2 X10'3 (4.5-11.0)
[2020-05-05 05:15] LABS: ALANINE AMINOTRANSFERASE 15 U/L (12-78); ALBUMIN 2.8 G/DL (3.4-5.0); ALBUMIN/GLOBULIN RATIO 0.9 (1.1-1.5); ALKALINE PHOSPHATASE 45 IU/L (46-116); ANION GAP 6 (8-16); ASPARTATE AMINO TRANSFERASE 18 U/L (10-37); BILIRUBIN,TOTAL 0.7 MG/DL (0.1-1.0); BLOOD UREA NITROGEN 9 MG/DL (7-18); BUN/CREATININE RATIO 9.4 (6.6-38.0); CHLORIDE 109 MMOL/L (99-107); CREATININE 0.96 MG/DL (0.40-0.90); GLUCOSE 160 MG/DL (70-104); MAGNESIUM 2.3 MG/DL (1.5-2.4); POTASSIUM 3.9 MMOL/L (3.5-5.1); SODIUM 142 MMOL/L (135-145); TOTAL CARBON DIOXIDE 27.4 MMOL/L (24-32); eGFR 57 ML/MIN
--- NOTE | 2020-05-05 06:11 | NUR ---
Problems reprioritized. Patient report given, questions answered & plan of care reviewed with Dejan RN.
--- NOTE | 2020-05-05 06:13 | NUR ---
Patient in room [facility] 340. I have received report from MAXIMO LEÓN and had the opportunity to ask questions and assume patient care.
[2020-05-05 07:30] VITALS: BP 125/57
[2020-05-05] MEDS ORDERED: levoTHYROXINE 25mcg tablet PO SCH (07:30)
[2020-05-05] MEDS ORDERED: sennosides 8.6mg tablet PO SCH (08:00)
[2020-05-05] MEDS ORDERED: atorvastatin 20mg tablet PO SCH (08:00)
[2020-05-05] MEDS ORDERED: pantoprazole 40mg Tablet.DR PO SCH (08:00)
[2020-05-05] MEDS ORDERED: HYDROchlorothiazide 12.5mg capsule OGT SCH (08:00)
[2020-05-05] MEDS ORDERED: lisinopril 20mg tablet PO SCH (08:00)
[2020-05-05] MEDS: K and/or MAG REPLACEMENT MC SCH (08:00)
[2020-05-05] MEDS ORDERED: allopurinol 100mg tablet PO SCH (08:00)
[2020-05-05] MEDS: pregabalin 25mg capsule PO SCH (09:16)
[2020-05-05 11:00] VITALS: BP 112/48
--- NOTE | 2020-05-05 11:45 | NUR ---
patient IV taken out at discharge. Patient did not receive any new medications at discharge. Patient was educated on condition and was encouraged to come back to ER if symptoms return. Patient discharged into the care of her family at discharge and transported home in private vehicle.
== END 2020-05-05 11:58 | disposition home or self-care (01) | DRG 390 ==
LOC: ER 18:03 → ED HOLD 22:02 → SUR 3N 23:59
PROVIDERS: ADMIT Family Medicine; ATTEND Internal Medicine
DX: K56.51 Intestinal adhesions [bands], with partial obstruction (principal); E03.9 Hypothyroidism, unspecified; E11.9 Type 2 diabetes mellitus without complications; I10 Essential (primary) hypertension; E78.5 Hyperlipidemia, unspecified; D72.823 Leukemoid reaction; D64.9 Anemia, unspecified; K57.30 Diverticulosis of large intestine without perforation or abscess without bleeding; E83.42 Hypomagnesemia; A05.9 Bacterial foodborne intoxication, unspecified; Z83.3 Family history of diabetes mellitus; Z85.528 Personal history of other malignant neoplasm of kidney; Z90.3 Acquired absence of stomach [part of]; Z90.411 Acquired partial absence of pancreas; Z90.710 Acquired absence of both cervix and uterus; Z88.8 Allergy status to other drugs, medicaments and biological substances; Z90.81 Acquired absence of spleen; Z88.2 Allergy status to sulfonamides
CPT/HCPCS: 36415; 71045; 74176; 80053; 82948; 83036; 83690; 83735; 83880; 84484; 85007; 85025; 87081; 93005; 96374; 96375; 99285; C9113; G0378; J1170; J1650; J1815; J2060; J2270; J2405; J3475; J7030; Q9963